=== PATIENT | male | born 1940 | race Caucasian/White ===

== ENCOUNTER 2022-03-13 | Outpatient (REF) | payer MEDICARE, SELFPAY | END 2022-03-13 00:01 | disposition home or self-care (01) | LOC: HO.MMNH1L | PROVIDERS: Visit Provider Family Medicine | DX: Z13.89 Encounter for screening for other disorder (principal) ==

== ENCOUNTER 2022-03-20 | Outpatient (REF) | payer MEDICARE, SELFPAY | END 2022-03-20 00:01 | disposition home or self-care (01) | LOC: HO.MMNH1L | PROVIDERS: Visit Provider Family Medicine | DX: Z13.89 Encounter for screening for other disorder (principal) ==